=== PATIENT | female | born 1995 | race Caucasian/White ===

== ENCOUNTER 2020-02-27 20:22 | Emergency (ER) | payer MEDICAID ==
[2020-02-27 20:46] LABS: BILIRUBIN,URINE NEGATIVE (NEGATIVE); GLUCOSE, URINE (UA) NEGATIVE (NEGATIVE); KETONES,URINE (UA) NEGATIVE (NEGATIVE); LEUKOCYTE ESTERASE, URINE SMALL (NEGATIVE); NITRITE,URINE NEGATIVE (NEGATIVE); OCCULT BLOOD,URINE MODERATE (NEGATIVE); PH,URINE 7.5 PH (5.0-7.5); PROTEIN,URINE TRACE mg/dL (NEGATIVE); UROBILINOGEN,URINE 0.2 (NORMAL) E.U./dL (NORMAL)
[2020-02-27 20:49] LABS: CLARITY,URINE HAZY (CLEAR); HCG UR QUAL NEGATIVE
[2020-02-27 20:57] LABS: BASOPHILS # (AUTO) 0.1 10^3/uL (0.0-0.1); BASOPHILS % (AUTO) 0.5 %; EOSINOPHILS # (AUTO) 0.2 10^3/uL (0.0-0.7); EOSINOPHILS % (AUTO) 1.2 %; HGB - HEMOGLOBIN 13.6 g/dL (12.0-16.0); LYMPHOCYTES # (AUTO) 2.4 10^3/uL (1.5-3.5); LYMPHOCYTES % (AUTO) 13.9 %; MEAN CORPUSCULAR HEMOGLOBIN 32.9 pg (27.0-31.0); MEAN CORPUSCULAR HGB CONC 33.7 g/dL (32.0-36.0); MEAN CORPUSCULAR VOLUME 97.3 fL (81.0-99.0); MEAN PLATELET VOLUME 8.9 fL (7.9-10.8); MONOCYTES # (AUTO) 0.9 10^3/uL (0.0-1.0); NEUTROPHILS # (AUTO) 13.4 10^3/uL (1.5-6.6); NEUTROPHILS % (AUTO) 78.9 %; PLT - PLATELET COUNT 344 10^3/uL (130-450); RED BLOOD COUNT 4.14 10^6/uL (4.20-5.40); RED CELL DISTRIBUTION WIDTH 13.4 % (12.0-15.0)
[2020-02-27 20:58] LABS: AMORPHOUS SEDIMENT,UR Few /LPF; BACTERIA,URINE Many /HPF (None Seen); SQUAMOUS EPITHELIAL CELL,UR FEW Squamous (<= Few)
--- NOTE | 2020-02-27 21:09 | ED Physician Documentation ---
PD HPI FEMALE - Stated complaint Stated Complaint: FEMALE - Chief complaint Chief Complaint: Abd Pain - History obtained from History obtained from: Patient - History of Present Illness Timing - onset: How many weeks ago (3) Timing - details: Intermittant Pain level max: 6 Associated symptoms: Abdominal pain, Pelvic pain. No: Fever Contributing factors: No: Similar symptoms before: Has not had sx before Recently seen: Not recently seen - Additional information Additional information: c/o episodic vaginal bleeding over past 3 weeks, sometimes associated with clots. She says the reason for coming to ED tonight is 2-3 days of LLQ abdominal pain Review of Systems Constitutional: denies: Fever, Chills, Sweats Cardiac: reports: Reviewed and negative Respiratory: reports: Reviewed and negative GI: reports: Abdominal Pain. 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 : None HEENT: None Psych: None Musculoskeletal: None Derm: None Other Past Medical History: Hypotension - Past Surgical History Past Surgical History: No - Present Medications Home Medications: Ambulatory Orders Medication Instructions Recorded Confirmed Midodrine 02/27/20 - Allergies Allergies/Adverse Reactions: Allergies Allergy/AdvReac Type Severity Reaction Status Date / Time No Known Drug Allergies Allergy Verified 02/27/20 20:26 - Social History Does the pt smoke?: No Smoking Status: Never smoker Does the pt drink ETOH?: No Does the pt have substance abuse?: No - Immunizations Immunizations are current?: Yes - POLST Patient has POLST: No PD ED PE NORMAL - Vitals Vital signs reviewed: Yes - General General: Alert and oriented X 3, No acute distress, Well developed/nourished - HEENT HEENT: Moist mucous membranes - Neck Neck: Supple, no meningeal sign - Cardiac Cardiac: No murmur - Respiratory Respiratory: No respiratory distress, Clear bilaterally - Abdomen Abdomen: Normal bowel sounds - Back Back: No CVA TTP - Derm Derm: Normal color, Warm and dry PD ED PE EXPANDED - Cardiac Cardiac: Tachy, Regular Rhythm - Abdomen Abdomen: Tender to palpation, LLQ. No: Rebound, Guarding Results - Vitals Vitals: Vital Signs - 24 hr 02/27/20 02/28/20 02/28/20 22:00 00:19 00:42 Temperature 36.9 C 37.6 C 37.7 C Heart Rate 120 H 133 H 123 H Respiratory 18 18 18 Rate Blood Pressure 128/72 122/78 138/87 H O2 Saturation 99 98 100 02/28/20 01:30 Temperature 36.5 C Heart Rate 112 H Respiratory 16 Rate Blood Pressure 109/78 O2 Saturation 97 Oxygen O2 Source Room air - Labs Labs: Microbiology 02/27/20 20:35 Urine Culture - Preliminary Urine,Clean Catch Laboratory Tests 02/27/20 02/27/20 02/27/20 20:35 20:50 20:50 WBC 17.0 H RBC 4.14 L Hgb 13.6 Hct 40.3 MCV 97.3 MCH 32.9 H MCHC 33.7 RDW 13.4 Plt Count 344 MPV 8.9 Neut # (Auto) 13.4 H Lymph # (Auto) 2.4 [place] # (Auto) 0.9 Eos # (Auto) 0.2 Baso # (Auto) 0.1 Absolute Nucleated RBC 0.00 Nucleated RBC % 0.0 Sodium 138 Potassium 3.7 Chloride 102 Carbon Dioxide 25 Anion Gap 11.0 BUN 13 Creatinine 0.6 Estimated GFR (MDRD) 122 Glucose 108 H Calcium 9.5 Total Bilirubin 0.7 AST 13 ALT 14 Alkaline Phosphatase 83 Total Protein 7.9 Albumin 4.8 Globulin 3.1 Albumin/Globulin Ratio 1.5 Lipase 28 Urine Color YELLOW Urine Clarity HAZY Urine pH 7.5 Ur Specific [place] 1.025 Urine Protein TRACE Urine Glucose (UA) NEGATIVE Urine Ketones NEGATIVE Urine Occult Blood MODERATE H Urine Nitrite NEGATIVE Urine Bilirubin NEGATIVE Urine Urobilinogen 0.2 (NORMAL) Ur Leukocyte Esterase SMALL H Urine RBC 11-25 H Urine WBC 11-25 H Ur Squamous Epith Cells FEW Squamous Amorphous Sediment Few Urine Bacteria Many H Ur Microscopic Review INDICATED Urine Culture Comments INDICATED Urine HCG, Qual NEGATIVE Blood Type Antibody Screen 02/27/20 20:50 WBC RBC Hgb Hct MCV MCH MCHC RDW Plt Count MPV Neut # (Auto) Lymph # (Auto) [place] # (Auto) Eos # (Auto) Baso # (Auto) Absolute Nucleated RBC Nucleated RBC % Sodium Potassium Chloride Carbon Dioxide Anion Gap BUN Creatinine Estimated GFR (MDRD) Glucose Calcium Total Bilirubin AST ALT Alkaline Phosphatase Total Protein Albumin Globulin Albumin/Globulin Ratio Lipase Urine Color Urine Clarity Urine pH Ur Specific [place] Urine Protein Urine Glucose (UA) Urine Ketones Urine Occult Blood Urine Nitrite Urine Bilirubin Urine Urobilinogen Ur Leukocyte Esterase Urine RBC Urine WBC Ur Squamous Epith Cells Amorphous Sediment Urine Bacteria Ur Microscopic Review Urine Culture Comments Urine HCG, Qual Blood Type A POSITIVE Antibody Screen NEGATIVE - Rads (name of study) pelvic/TV US Radiology: Prelim report reviewed, See rad report CT A/P Radiology: Prelim report reviewed, See rad report PD MEDICAL DECISION MAKING - ED course Complexity details: reviewed results, re-evaluated patient, considered differential, d/w patient, d/w family ED course: Leukocytosis with LLQ tenderness but no abnormalities on pelvic/TV US. On reexamination she is tachycardic to 130s and has ongoing LLQ tenderness; thus IV fluid bolus, toradol, and CT A/P ordered. CT also does not demonstrate etiology of her symptoms. Her tachycardia persists but is lower 110s. She is in NAD on reevaluation. Results d/w patient and her mother. Departure - Departure Disposition: 01 Home, Self Care Clinical Impression: Vaginal bleeding Abdominal pain Qualifiers: Abdominal location: left lower quadrant Qualified Code(s): R10.32 - Left lower quadrant pain Condition: Good Instructions: ED Abdominal Pain Unkn Cause, ED Bleed Irregular Vaginal Comments: Follow up with your primary care provider, next available appointment Discharge Date/Time: 02/28/20 02:25
[2020-02-27 21:11] LABS: ALBUMIN 4.8 g/dL (3.2-5.5); ALBUMIN/GLOBULIN RATIO 1.5 (1.0-2.2); BILIRUBIN,TOTAL 0.7 mg/dL (0.2-1.0); CALCIUM 9.5 mg/dL (8.5-10.3); CREATININE 0.6 mg/dL (0.4-1.0); TOTAL PROTEIN 7.9 g/dL (6.7-8.2)
[2020-02-28] MEDS ORDERED: KETOROLAC 30 MG/ML VIAL IVP STA (00:26)
[2020-02-28] MEDS ORDERED: SODIUM CHLORIDE 0.9% 1,000 ML IV STA (00:26)
[2020-02-28] MEDS ORDERED: IOVERSOL 320 100 ML VIAL IVP ONE ×2 (01:02→01:28)
[2020-02-28 01:43] VITALS: BP 109/78
--- NOTE | 2020-02-28 10:49 | CT Report ---
PROCEDURE: Abdomen/Pelvis W INDICATIONS: LLQ pain, tenderness CONTRAST: IV CONTRAST: Optiray 320 ml: 100 PO CONTRAST: *NO PO CONTRAST TECHNIQUE: After the administration of nonionic IV contrast, 5 mm thick sections acquired from the diaphragms to the symphysis. 5 mm thick coronal and sagittal reformats were acquired. For radiation dose reducti on, the following was used: automated exposure control, adjustment of mA and/or kV according to jarad ent size. COMPARISON: Correlation is made with the accompanying pelvic ultrasound, 02/27/2020 FINDINGS: Image quality: Excellent. ABDOMEN: Lung bases: Lung bases are clear. Heart size is normal. Solid organs: Liver and spleen are normal in size and enhancement. Gallbladder wall does not appear thickened. Biliary system is non dilated. Pancreas enhances normally. No adrenal nodules. Kidn eys demonstrate normal size and enhancement, without hydronephrosis. Peritoneum and bowel: Bowel loops demonstrate normal wall thickness and caliber. No free fluid or a ir. A normal appendix is seen. Nodes and vessels: No retroperitoneal or mesenteric adenopathy by size criteria. Aorta and inferior vena cava are normal in size. Miscellaneous: No ventral hernias. PELVIS: Genitourinary: Bladder wall thickness is normal. The uterus demonstrates an unremarkable appearance for age. No adnexal masses are seen. Mild pelvic free fluid can be seen, which is considered to be w ithin physiologic limits. Miscellaneous: No inguinal hernias or adenopathy. Bones: No suspicious bony lesions. No vertebral body compression fractures. IMPRESSION: A cause of the patient's left lower quadrant pain is not identified. Normal appendix. Note: No significant discrepancy from the preliminary report. Reviewed by: Tomasz Desir MD on 02/28/2020 9:48 AM [facility] Approved by: Tomasz Desir MD on 02/28/2020 9:48 AM [facility] Station ID: [id number]
--- NOTE | 2020-02-28 11:23 | Ultrasound Report ---
PROCEDURE: Pelvic w/Transvag+Doppler Comp INDICATIONS: vag. bleeding, left pelvic tenderness,leukocytosis TECHNIQUE: Real-time scanning was performed of the pelvic organs, with image documentation. Additional endovagi nal scanning was necessary due to incomplete visualization of the adnexal and endometrial structures by transabdominal scanning. COMPARISON: Correlation is made with the accompanying abdomen and pelvis CT, 02/28/2020. FINDINGS: Transabdominal scanning: Limited scanning through the kidneys shows no hydronephrosis. No pathologi c free abdominal or pelvic fluid. Endovaginal scanning: Uterus: Uterus is normal in size at 7.2 x 3.3 x 4.2 cm. The endometrium measures 5 mm in combined t hickness. Ovaries: The right ovary measures 3.3 x 2.1 x 3 cm and demonstrates more than 12 follicles. The left ovary measures 2.7 x 1.4 x 1.8 cm and demonstrates an unremarkable sonographic appearance. Normal-ap pearing arterial waveforms are confirmed to each ovary. No adnexal masses are seen on either side. The transabdominal examination is limited by a poor bladder prep. IMPRESSION: No imaging explanation is found for the patient's presenting symptoms. Note: No significant discrepancy from the preliminary report. Reviewed by: Tomasz Desir MD on 02/28/2020 10:22 AM [facility] Approved by: Tomasz Desir MD on 02/28/2020 10:22 AM [facility] Station ID: [id number]
--- NOTE | 2020-02-29 12:20 | ED Physician Documentation ---
ED Addendum - Addendum Addendum: 02/29/20 12:19 Culture and chart reviewed, urine culture positive for Staphylococcus s aprophyticus. I asked the nurse to call her, given her ED course I recommended a very low suspicion to return to the emergency department for reevaluation, if she is doing okay we will prescribe Bactrim DS 1 p.o. twice daily for 10 days.
== END 2020-02-28 02:25 | disposition home or self-care (01) ==
LOC: ED 20:22
DX: N39.0 Urinary tract infection, site not specified (principal); B95.8 Unspecified staphylococcus as the cause of diseases classified elsewhere; D72.829 Elevated white blood cell count, unspecified; R10.32 Left lower quadrant pain; N93.9 Abnormal uterine and vaginal bleeding, unspecified; R00.0 Tachycardia, unspecified
CPT/HCPCS: 36415; 74177; 76830; 76856; 80053; 81001; 81025; 83690; 85025; 86850; 86900; 86901; 87077; 87086; 93975; 96361; 96374; 99284; Q9967; 81003

== ENCOUNTER 2020-02-29 14:31 | Emergency (ER) | payer MEDICAID ==
[2020-02-29] MEDS ORDERED: SODIUM CHLORIDE 0.9% 1,000 ML IV STA (14:47)
[2020-02-29] MEDS ORDERED: HYDROcod/ACETAM 5/325 MG TABLET PO STA (14:47)
[2020-02-29] MEDS ORDERED: cefTRIAXone 1 GM VIAL IVP STA (14:47)
--- NOTE | 2020-02-29 14:48 | ED Physician Documentation ---
History of Present Illness - Stated complaint Stated Complaint: ABNORMAL LABS - Chief complaint Chief Complaint: General - History obtained from History obtained from: Patient - Additonal information Additional information: This is a 25-year-old woman who is treated and released about 36 hours ago for left lower quadrant pain radiating to the back. She was called back to the emergency department because in the interim her urine culture grew staph saprophyticus suggesting the cause of her symptoms could be pyelonephritis. On previous visit she had a pelvic ultrasound that was normal and an abdominal CT done with IV contrast that was unremarkable. Since her discharge she continues to have some pain, left lower quadrant in both flanks, left greater than right. She denies any fevers. 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 : None HEENT: None Psych: None Musculoskeletal: None Derm: None - Past Surgical History Past Surgical History: No - Present Medications Home Medications: Ambulatory Orders Medication Instructions Recorded Confirmed Midodrine 5 mg PO DAILY 02/27/20 02/29/20 Ciprofloxacin HCl [Cipro] 500 mg PO BID #20 tablet 02/29/20 HYDROcod/ACETAM 5/325 [[place] 5/325] 1 - 2 tab PO Q6H PRN #10 tablet 02/29/20 - Allergies Allergies/Adverse Reactions: Allergies Allergy/AdvReac Type Severity Reaction Status Date / Time No Known Drug Allergies Allergy Verified 02/29/20 14:36 - Social History Does the pt smoke?: No Smoking Status: Never smoker Does the pt drink ETOH?: No Does the pt have substance abuse?: No - Immunizations Immunizations are current?: Yes - POLST Patient has POLST: No PD ED PE NORMAL - Vitals Vital signs reviewed: Yes - General General: Alert and oriented X 3, No acute distress - Abdomen Abdomen: Normal bowel sounds, Soft, Non tender - Back Back: Other (Mild L CVA TTP) - Derm Derm: Normal color, Warm and dry, No rash - Extremities Extremities: No edema, No calf tenderness / cord - Neuro Neuro: Alert and oriented X 3, Normal speech Results - Vitals Vitals: Vital Signs - 24 hr 02/29/20 02/29/20 02/29/20 14:33 14:36 16:06 Temperature 36.6 C 36.6 C Heart Rate 101 H 101 H 108 H Respiratory 18 18 18 Rate Blood Pressure 143/95 H 143/95 H 139/98 H O2 Saturation 100 100 100 Oxygen O2 Source Room air - Labs Labs: Laboratory Tests 02/29/20 02/29/20 02/29/20 15:00 15:00 15:00 WBC 12.6 H RBC 3.76 L Hgb 12.5 Hct 36.8 L MCV 97.9 MCH 33.2 H MCHC 34.0 RDW 13.3 Plt Count 330 MPV 9.1 Neut # (Auto) 9.4 H Lymph # (Auto) 2.2 [place] # (Auto) 0.7 Eos # (Auto) 0.2 Baso # (Auto) 0.1 Absolute Nucleated RBC 0.00 Nucleated RBC % 0.0 Sodium 140 Potassium 3.8 Chloride 107 Carbon Dioxide 26 Anion Gap 7.0 BUN 12 Creatinine 0.7 Estimated GFR (MDRD) 102 Glucose 99 Lactic Acid 1.1 Calcium 9.6 Total Bilirubin 0.5 AST 15 ALT 17 Alkaline Phosphatase 64 Total Protein 7.7 Albumin 4.3 Globulin 3.4 Albumin/Globulin Ratio 1.3 Lipase 31 PD MEDICAL DECISION MAKING - ED course ED course: 25-year-old woman was asked to return to the emergency department as she had a white count of 17,000 yesterday and positive urine culture and we wanted to recheck her and get treatment started. She looks well today with improved vital signs and white count. She was administered Rocephin IV here. Departure - Departure Disposition: 01 Home, Self Care Clinical Impression: Pyelonephritis Condition: Good Record reviewed to determine appropriate education?: Yes Instructions: Pyelonephritis Dc Prescriptions: Ciprofloxacin HCl [Cipro] 500 mg PO BID #20 tablet HYDROcod/ACETAM 5/325 [[place] 5/325] 1 - 2 tab PO Q6H PRN #10 tablet PRN Reason: Pain Comments: Thanks for coming back today, your vital signs and blood work are better than they were the other night. You got of a dose of IV antibiotics here for the kidney infection and a prescription for that as well as some pain medication. Follow-up with your doctor later this week. Return if worse. Discharge Date/Time: 02/29/20 16:20
[2020-02-29 15:21] LABS: BASOPHILS # (AUTO) 0.1 10^3/uL (0.0-0.1); BASOPHILS % (AUTO) 0.4 %; EOSINOPHILS # (AUTO) 0.2 10^3/uL (0.0-0.7); EOSINOPHILS % (AUTO) 1.8 %; HGB - HEMOGLOBIN 12.5 g/dL (12.0-16.0); LYMPHOCYTES # (AUTO) 2.2 10^3/uL (1.5-3.5); LYMPHOCYTES % (AUTO) 17.4 %; MEAN CORPUSCULAR HEMOGLOBIN 33.2 pg (27.0-31.0); MEAN CORPUSCULAR VOLUME 97.9 fL (81.0-99.0); MEAN PLATELET VOLUME 9.1 fL (7.9-10.8); MONOCYTES # (AUTO) 0.7 10^3/uL (0.0-1.0); MONOCYTES % (AUTO) 5.5 %; NEUTROPHILS # (AUTO) 9.4 10^3/uL (1.5-6.6); NEUTROPHILS % (AUTO) 74.5 %; PLT - PLATELET COUNT 330 10^3/uL (130-450); RED BLOOD COUNT 3.76 10^6/uL (4.20-5.40); RED CELL DISTRIBUTION WIDTH 13.3 % (12.0-15.0); WHITE BLOOD COUNT 12.6 x10^3/uL (4.8-10.8)
[2020-02-29 15:29] LABS: ALBUMIN 4.3 g/dL (3.2-5.5); ALBUMIN/GLOBULIN RATIO 1.3 (1.0-2.2); BILIRUBIN,TOTAL 0.5 mg/dL (0.2-1.0); CALCIUM 9.6 mg/dL (8.5-10.3); CREATININE 0.7 mg/dL (0.4-1.0); TOTAL PROTEIN 7.7 g/dL (6.7-8.2)
[2020-02-29 16:06] VITALS: BP 139/98
== END 2020-02-29 16:20 | disposition home or self-care (01) ==
LOC: ED 14:31
DX: N10 Acute pyelonephritis (principal); B95.8 Unspecified staphylococcus as the cause of diseases classified elsewhere
CPT/HCPCS: 36415; 80053; 83605; 83690; 85025; 87040; 96361; 96374; 99283; 99284; A9270